=== PATIENT | female | born 1980 | race Caucasian/White ===

== ENCOUNTER 2018-04-16 12:39 | Emergency (ER) | payer MEDICAID ==
[~2018-04-16] VITALS: Ht 165.1 cm; Wt 118.2 kg
[~2018-04-16 12:39] MED LIST: NOCURR
[2018-04-16 12:49] VITALS: BP 127/59
== END 2018-04-16 14:50 | disposition left against medical advice (07) ==
LOC: EMS 12:40
DX: F41.9 Anxiety disorder, unspecified (principal); M79.602 Pain in left arm; R11.0 Nausea; Z53.21 Procedure and treatment not carried out due to patient leaving prior to being seen by health care provider
CPT/HCPCS: 93005

== ENCOUNTER 2022-03-01 16:21 | Emergency (ER) | payer MEDICAID ==
[~2022-03-01] VITALS: Ht 165.1 cm; Wt 136.4 kg
[2022-03-01 16:44] VITALS: BP 150/98
== END 2022-03-01 19:27 | disposition left against medical advice (07) ==
LOC: EMS 16:47
DX: F41.9 Anxiety disorder, unspecified (principal); R07.89 Other chest pain; R06.02 Shortness of breath; Z53.21 Procedure and treatment not carried out due to patient leaving prior to being seen by health care provider